=== PATIENT | male | born 1955 ===

== ENCOUNTER 2018-05-03 07:56 | Outpatient (CLI) | payer OTHER ==
[~2018-05-03] VITALS: Ht 152.4 cm; Wt 83.5 kg
[~2018-05-03 07:56] MED LIST: FLONASE16 GM NASAL; LIPO-FLAVONOID1 EACH PO
[2018-05-03] MEDS ORDERED: LIPO-FLAVONOID1 EACH PO (10:54)
== END 2018-05-03 08:15 | disposition home or self-care (01) ==
LOC: OFIC 805 07:56
DX: R42 Dizziness and giddiness (principal); H61.21 Impacted cerumen, right ear

== ENCOUNTER 2021-12-24 14:01 | Outpatient (CLI) | payer OTHER | END 2021-12-24 14:10 | disposition home or self-care (01) | LOC: RAD 14:01 | PROVIDERS: ATTEND Physical Medicine & Rehabilitation | DX: M54.2 Cervicalgia (principal) ==

== ENCOUNTER 2022-05-31 11:07 | Outpatient (CLI) | payer OTHER | END 2022-05-31 11:10 | disposition home or self-care (01) | LOC: RAD 11:07 | PROVIDERS: ATTEND Physical Medicine & Rehabilitation | DX: M54.2 Cervicalgia (principal); M54.50 Low back pain, unspecified ==